=== PATIENT | female | born 1960 | race Caucasian/White ===

== ENCOUNTER 2018-06-17 15:46 | Outpatient (CLI) | payer BC | END 2018-06-17 15:47 | disposition home or self-care (01) | LOC: BICMAMMO 15:46 | PROVIDERS: ATTEND Specialist | DX: Z12.31 Encounter for screening mammogram for malignant neoplasm of breast (principal); Z00.00 Encounter for general adult medical examination without abnormal findings; Z80.3 Family history of malignant neoplasm of breast | CPT/HCPCS: 77063; 77067 ==

== ENCOUNTER 2019-06-29 15:26 | Outpatient (CLI) | payer BC ==
--- NOTE | 2019-06-29 16:02 | MMO ---
Bilateral MAMMO Bilat Screen [facility]. CLINICAL HISTORY: Patient is 58 years old and is seen for screening. The patient has the following family history of breast cancer: mother, at age 65, malignant (generic). The patient has no personal history of cancer. VIEWS: The views performed were: bilateral craniocaudal with tomosynthesis; bilateral mediolateral oblique; and bilateral mediolateral oblique with tomosynthesis. FILMS COMPARED: The present examination has been compared to prior imaging studies performed at [facility] on 03/15/2010, 07/10/2011, 07/21/2013 and 06/17/2018. This study has been interpreted with the assistance of computer-aided detection. MAMMOGRAM FINDINGS: There are scattered fibroglandular densities. There are no suspicious masses, suspicious calcifications, or new areas of architectural distortion. IMPRESSION: THERE IS NO MAMMOGRAPHIC EVIDENCE OF MALIGNANCY. A ROUTINE FOLLOW-UP MAMMOGRAM IN 1 YEAR IS RECOMMENDED. THE RESULTS OF THIS EXAM WERE SENT TO THE PATIENT. ACR BI-RADS Category 1 - Negative MAMMOGRAPHY NOTE: 1. A negative mammogram report should not delay a biopsy if a dominant of clinically suspicious mass is present. 2. Approximately 10% to 15% of breast cancers are not detected by mammography. 3. Adenosis and dense breasts may obscure an underlying neoplasm. Reported by: KAILYN MALONEY MD Electonically Signed: [id number]
== END 2019-06-29 15:27 | disposition home or self-care (01) ==
LOC: BICMAMMO 15:26
PROVIDERS: ATTEND Specialist
DX: Z12.31 Encounter for screening mammogram for malignant neoplasm of breast (principal); Z80.3 Family history of malignant neoplasm of breast
CPT/HCPCS: 77063; 77067

== ENCOUNTER 2021-10-26 10:34 | Inpatient (IN) | payer BC ==
[2021-10-26 11:01] VITALS: BMI 42.7
[2021-10-26] MEDS ORDERED: Ondansetron ODT 4 MG TAB PO PRN (13:04)
[2021-10-26] MEDS ORDERED: Acetaminophen 325 MG TAB PO PRN (13:04)
[2021-10-26] MEDS ORDERED: Ondansetron PF 4 MG/2 ML Vial IVP PRN (13:04)
[2021-10-26] MEDS ORDERED: hydrALAZINE 20 MG/ML VIAL SLOW IVP PRN (13:04)
[2021-10-26] MEDS ORDERED: Morphine 4 MG/ML VIAL SLOW IVP PRN ×2 (13:13→18:26)
[2021-10-26 14:36] LABS: #Eosinphils 0.2 thou/uL (0.0-0.7); #Lymphocytes 1.7 thou/uL (1.20-3.40); #Monocytes 0.4 thou/uL (0.11-0.59); #Neutrophils 3.6 thou/uL (1.40-6.50); %Basophils 0.5 % (0.0-1.0); %Eosinophils 2.8 % (0.0-10.0); %Lymphocytes 29.1 % (21.0-51.0); %Monocytes 7.3 % (0.0-10.0); %Neutrophils 60.2 % (42.0-75.0); Hemoglobin 12.5 g/dL (12.0-16.0); Mean Corpuscular HGB CONC 33.2 g/dL (32.0-36.0); Mean Corpuscular Hemoglobin 30.9 pg (27.0-31.0); Mean Corpuscular Volume 93.1 fL (78.0-98.0); Mean Platelet Volume 7.4 fL (7.4-10.4); Platelet Count 219 thou/uL (130-400); RBC Distribution Width 12.3 % (11.5-14.5); Red Blood Cell (RBC) Count 4.05 mill/uL (4.20-5.40)
[2021-10-26] MEDS: Lactated Ringer's 1,000 ML IV SCH ×2 (14:47→20:38)
[2021-10-26 15:01] LABS: ALT (SGPT) 329 U/L (8-55); AST (SGOT) 350 U/L (5-34); Albumin 3.5 g/dL (3.5-5.0); Alkaline Phosphatase 141 U/L (40-110); Anion Gap 10 mmol/L (10-20); BUN (Urea Nitrogen) 12 mg/dL (9.8-20.1); Bilirubin, Direct 0.5 mg/dL (0.1-0.3); Bilirubin, Total 0.9 mg/dL (0.2-1.2); Calc. Creatinine Clearance 136 mL/min (70-130); Calcium 8.8 mg/dL (7.8-10.44); Carbon Dioxide 29 mmol/L (22-29); Chloride 105 mmol/L (98-107); Glucose 91 mg/dL (70-105); Phosphorus 3.1 mg/dL (2.3-4.7); Potassium 3.5 mmol/L (3.5-5.1); Protein, Total 6.1 g/dL (6.0-8.3); Sodium 140 mmol/L (136-145)
[2021-10-26 15:14] LABS: Lipase 1844 U/L (8-78)
[2021-10-26] MEDS ORDERED: Midazolam HCl 2 mg/2 ml Vial ONE (15:46)
[2021-10-26] MEDS ORDERED: Fentanyl 250 MCG/5 ML VIAL ONE ×2 (15:46→18:28)
[2021-10-26] MEDS ORDERED: Famotidine/PF 20 mg/2ml Vial ONE (15:47)
[2021-10-26] MEDS ORDERED: Iothalamate Meglumine 60% 50 ML VIAL FS ONE (15:54)
[2021-10-26] MEDS ORDERED: Bupivacaine 0.25% HCL 30 ML VIAL ONE (15:54)
[2021-10-26] MEDS ORDERED: Xylocaine 1% w/ Epi 1:100K 10 ML VIAL ONE (15:54)
[2021-10-26] MEDS ORDERED: Rocuronium Bromide 10 MG/ML (10ML VIAL) ONE (16:29)
[2021-10-26] MEDS ORDERED: Ondansetron PF 4 MG/2 ML Vial ONE ×2 (16:29→18:26)
[2021-10-26] MEDS ORDERED: PHENYLEPHRINE-NS 100 MCG/ML 10 ML SYRINGE ONE (16:29)
[2021-10-26] MEDS ORDERED: PROPOFOL 200 MG/20 ML VIAL ONE (16:29)
[2021-10-26] MEDS ORDERED: Lidocaine 1% PF 5 ML VIAL ONE (16:29)
[2021-10-26] MEDS ORDERED: Labetalol HCl 100 MG/20 ML VIAL ONE (16:29)
[2021-10-26] MEDS ORDERED: Dexamethasone 20 MG/5 ML VIAL ONE (16:29)
[2021-10-26] MEDS ORDERED: Glycopyrrolate 0.2 MG/ML 5 ML SYRINGE ONE (16:29)
[2021-10-26] MEDS ORDERED: traMADol HCl 50 MG TAB PO PRN (18:26)
[2021-10-26] MEDS ORDERED: Promethazine HCl 25 MG/ML VIAL IVPB PRN (18:27)
[2021-10-26] MEDS ORDERED: Promethazine HCl 25 MG/ML VIAL IM PRN (18:27)
[2021-10-26] MEDS ORDERED: Ondansetron HCl/PF 4 MG/2 ML Vial IVP PRN (18:27)
[2021-10-26] MEDS ORDERED: Acetaminophen 325 MG TAB PO SCH (18:30)
[2021-10-26] MEDS ORDERED: Promethazine HCl 25 MG/ML VIAL ONE (18:42)
[2021-10-26] MEDS ORDERED: traMADol HCl 50 MG TAB PO SCH (18:45)
[2021-10-27] MEDS: traMADol HCl 50 MG TAB PO SCH ×3 (00:45→11:52)
[2021-10-27] MEDS: Acetaminophen 325 MG TAB PO SCH ×3 (00:46→11:51)
[2021-10-27] MEDS: Lactated Ringer's 1,000 ML IV SCH (05:15)
[2021-10-27 05:38] LABS: #Lymphocytes 0.9 thou/uL (1.20-3.40); #Monocytes 0.4 thou/uL (0.11-0.59); #Neutrophils 5.2 thou/uL (1.40-6.50); %Eosinophils 0.1 % (0.0-10.0); %Lymphocytes 13.3 % (21.0-51.0); %Monocytes 6.3 % (0.0-10.0); %Neutrophils 80.3 % (42.0-75.0); Hemoglobin 11.9 g/dL (12.0-16.0); Mean Corpuscular HGB CONC 31.8 g/dL (32.0-36.0); Mean Corpuscular Hemoglobin 30.3 pg (27.0-31.0); Mean Corpuscular Volume 95.4 fL (78.0-98.0); Mean Platelet Volume 8.1 fL (7.4-10.4); Platelet Count 205 thou/uL (130-400); RBC Distribution Width 12.6 % (11.5-14.5); Red Blood Cell (RBC) Count 3.92 mill/uL (4.20-5.40); White Blood Cell (WBC) Count 6.5 thou/uL (4.8-10.8)
[2021-10-27 05:58] LABS: ALT (SGPT) 246 U/L (8-55); AST (SGOT) 181 U/L (5-34); Albumin 3.3 g/dL (3.5-5.0); Alkaline Phosphatase 121 U/L (40-110); Bilirubin, Direct 0.3 mg/dL (0.1-0.3); Bilirubin, Total 0.6 mg/dL (0.2-1.2); Protein, Total 5.8 g/dL (6.0-8.3)
[2021-10-27 06:03] LABS: Anion Gap 14 mmol/L (10-20); BUN (Urea Nitrogen) 9 mg/dL (9.8-20.1); Calc. Creatinine Clearance 144 mL/min (70-130); Calcium 8.2 mg/dL (7.8-10.44); Carbon Dioxide 24 mmol/L (22-29); Chloride 103 mmol/L (98-107); Glucose 126 mg/dL (70-105); Lipase 345 U/L (8-78); Sodium 137 mmol/L (136-145)
[2021-10-27] MEDS ORDERED: Pantoprazole 40 MG VIAL IVP SCH (09:00)
[2021-10-27] MEDS ORDERED: Enoxaparin Sodium 40 MG/0.4 ML SYRINGE SC SCH (09:00)
[2021-10-27 12:25] VITALS: BP 130/81; TEMP 98.5
== END 2021-10-27 12:26 | disposition home or self-care (01) | DRG 417 ==
LOC: SURG A 10:34
PROVIDERS: ADMIT Internal Medicine; ATTEND Internal Medicine
PROC: 0FT44ZZ Resection of Gallbladder, Percutaneous Endoscopic Approach (ICD-10-PCS; principal; 2021-10-26)
DX: K80.00 Calculus of gallbladder with acute cholecystitis without obstruction (principal); K85.10 Biliary acute pancreatitis without necrosis or infection; Z68.41 Body mass index [BMI] 40.0-44.9, adult; I10 Essential (primary) hypertension; E66.9 Obesity, unspecified; F41.9 Anxiety disorder, unspecified; F32.A Depression, unspecified; Z90.49 Acquired absence of other specified parts of digestive tract; Z79.899 Other long term (current) drug therapy; Z79.890 Hormone replacement therapy; Z90.710 Acquired absence of both cervix and uterus; Z98.890 Other specified postprocedural states; Z80.52 Family history of malignant neoplasm of bladder; Z80.3 Family history of malignant neoplasm of breast
CPT/HCPCS: 36415; 80048; 80076; 83690; 83735; 84100; 84478; 85025; 88304; C1713; C1889; C9113; J1100; J1650; J2250; J2405; J2550; J2704; J3010; J7120; Q9961-U8; S0020; S0028

== ENCOUNTER 2022-02-07 10:24 | Outpatient (CLI) | payer BC | END 2022-02-07 10:25 | disposition home or self-care (01) | LOC: BICMAMMO 10:24 | PROVIDERS: ATTEND Specialist | DX: Z12.31 Encounter for screening mammogram for malignant neoplasm of breast (principal); M85.9 Disorder of bone density and structure, unspecified; Z80.3 Family history of malignant neoplasm of breast | CPT/HCPCS: 77063; 77067; 77080 ==

== ENCOUNTER 2023-03-26 15:44 | Outpatient (CLI) | payer BC | END 2023-03-26 15:45 | disposition home or self-care (01) | LOC: BICMAMMO 15:44 | PROVIDERS: ATTEND Specialist | DX: Z12.31 Encounter for screening mammogram for malignant neoplasm of breast (principal); Z80.3 Family history of malignant neoplasm of breast | CPT/HCPCS: 77063; 77067 ==